=== PATIENT | female | born 1965 | race Caucasian/White ===

== ENCOUNTER 2018-05-24 09:02 | Emergency (ER) | payer OTHER ==
[~2018-05-24] VITALS: Ht 162.6 cm; Wt 56.7 kg
[2018-05-24 09:04] VITALS: BP 118/79
[2018-05-24] MEDS ORDERED: ALBU0.0912 IH (09:21)
[2018-05-24] MEDS ORDERED: MIRT30TA PO (09:21)
[2018-05-24] MEDS ORDERED: BUPR1FIL2 SL (09:21)
[2018-05-24] MEDS ORDERED: TOPI50TA PO (09:21)
[2018-05-24] MEDS ORDERED: OMEP20TC12 PO (09:21)
[2018-05-24] MEDS ORDERED: QUET50TA PO (09:21)
[2018-05-24] MEDS ORDERED: VENL150C1 PO (09:21)
[2018-05-24] MEDS ORDERED: GABA100C PO (09:21)
[2018-05-24 09:32] LABS: BASOPHILS % (AUTO) 0.6 % (0.0-2.0); EOSINOPHILS % (AUTO) 0.7 % (0.0-4.0); HEMATOCRIT 49.9 % (36-48); HEMOGLOBIN 16.6 g/dL (12.0-16.0); LYMPHOCYTES # (AUTO) 1.9 K/uL (2.5-16.5); LYMPHOCYTES % (AUTO) 41.1 % (20.5-51.1); MEAN CORPUSCULAR HEMOGLOBIN 33 pg (27-31); MEAN CORPUSCULAR HGB CONC 33 g/dL (33-37); MEAN CORPUSCULAR VOLUME 98.3 fL (80-94); MONOCYTES # (AUTO) 0.3 K/uL (0.8-1.0); MONOCYTES % (AUTO) 5.7 % (1.7-9.3); NEUTROPHILS # (AUTO) 2.3 K/uL (1.8-7.7); NEUTROPHILS % (AUTO) 51.9 % (42.2-75.2); PLATELET COUNT (AUTO) 266 K/uL (140-450); RED BLOOD CELL COUNT(AUTO) 5.08 MIL/uL (4.20-5.40); RED CELL DISTRIBUTION WIDTH 14.2 % (11.6-13.7); WHITE BLOOD COUNT (AUTO) 4.5 K/uL (4.8-10.8)
[2018-05-24 09:47] LABS: ANION GAP 15.4 (8-16); CARBON DIOXIDE 27.1 mmol/L (21-32); CREATININE 0.6 mg/dL (0.6-1.3); POTASSIUM 3.5 mmol/L (3.5-5.1); PROTHROMBIN TIME 9.6 secs (10.8-13.4)
[2018-05-24 09:53] LABS: SALICYLATE 3.3 mg/dL (2.8-20.0)
[2018-05-24 09:59] LABS: ACETAMINOPHEN < 0.5 ug/ml (10-30)
[2018-05-24] MEDS: NACL 0.9% 1,000 ML IV ONE (10:21)
[2018-05-24 11:31] LABS: APPEARANCE,URINE HAZY (CLEAR); BILIRUBIN,URINE NEGATIVE (NEGATIVE); BLOOD, URINE 1+ (NEGATIVE); COLOR,URINE YELLOW (YELLOW); LEUKOCYTE ESTERASE ,URINE NEGATIVE (NEGATIVE); NITRITE, URINE NEGATIVE (NEGATIVE); PH,URINE 5.5 (5.0-9.0); UGLUCOSE NEGATIVE (NEGATIVE)
[2018-05-24 11:52] LABS: RBC,URINE 0-5 (RARE) /HPF (0-5); WBC,URINE 0-5 (RARE) /HPF (0-5)
[2018-05-24 11:55] LABS: BARBITURATE, URINE NEG. ng/ml (NEG <=200); BENZODIAZEPINE, URINE NEG. ng/mL (NEG <=200); CANNABINOID, URINE NEG. ng/mL (NEG <=50); COCAINE, URINE NEG. ng/mL (NEG <=300); OPIATE, URINE NEG. ng/mL (NEG <=2000); PHENCYCLIDINE SCREEN,URINE NEG. ng/mL (NEG <=25)
[2018-05-24] MEDS: KETOROLAC 15 MG/ML VIAL IVP ONE (13:41)
[2018-05-24] MEDS: LORazepam 1 MG TAB PO ONE ×2 (17:12→17:47)
[2018-05-24 23:33] VITALS: BP 100/67
== END 2018-05-24 23:32 | disposition short-term general hospital (02) ==
LOC: MED 09:02
DX: R45.851 Suicidal ideations (principal); F10.10 Alcohol abuse, uncomplicated; Z79.899 Other long term (current) drug therapy
CPT/HCPCS: 36415; 74176; 80048; 80305; 81001; 81025; 85025; 85610; 96374; 99285; G0480; G0482; J1885; J7030

== ENCOUNTER 2023-04-25 19:57 | Emergency (ER) | payer OTHER ==
[~2023-04-25] VITALS: Ht 162.6 cm; Wt 54.4 kg
[~2023-04-25 19:57] MED LIST: ALBU0.0912 IH; BUPR1FIL2 SL; GABA100C PO; MIRT-92 PO; OMEP-278 PO; QUET50TA PO; TOPI50TA PO; VENL150C4 PO
[2023-04-25 19:58] VITALS: BP 91/71; PULSE 117; RESP 16; TEMP 97.8; O2SAT 100
[2023-04-25 20:42] LABS: BASOPHILS # (AUTO) 0.1 K/uL (0.00-0.22); BASOPHILS % (AUTO) 0.7 % (0.0-2.0); EOSINOPHILS # (AUTO) 0.1 K/uL (0-0.4); EOSINOPHILS % (AUTO) 1.6 % (0.0-4.0); HEMATOCRIT 40.2 % (36-48); HEMOGLOBIN 13.5 g/dL (12.0-16.0); LYMPHOCYTES # (AUTO) 3.6 K/uL (2.5-16.5); LYMPHOCYTES % (AUTO) 42.2 % (20.5-51.1); MEAN CORPUSCULAR HEMOGLOBIN 29 pg (27-31); MEAN CORPUSCULAR HGB CONC 34 g/dL (33-37); MEAN CORPUSCULAR VOLUME 86.2 fL (80-94); MONOCYTES # (AUTO) 0.7 K/uL (0.8-1.0); MONOCYTES % (AUTO) 7.8 % (1.7-9.3); NEUTROPHILS % (AUTO) 47.7 % (42.2-75.2); PLATELET COUNT (AUTO) 457 K/uL (140-450); RED BLOOD CELL COUNT(AUTO) 4.66 MIL/uL (4.20-5.40); RED CELL DISTRIBUTION WIDTH 14.6 % (11.6-13.7); WHITE BLOOD COUNT (AUTO) 8.4 K/uL (4.8-10.8)
[2023-04-25 20:53] LABS: SALICYLATE 5.6 mg/dL (2.8-20.0)
[2023-04-25 20:59] LABS: ANION GAP 12.1 (8-16); CALCIUM 8.6 mg/dL (8.5-10.1); CARBON DIOXIDE 27.7 mmol/L (21-32); CREATININE 0.7 mg/dL (0.6-1.3); POTASSIUM 3.8 mmol/L (3.5-5.1)
== END 2023-04-25 21:17 | disposition home or self-care (01) ==
LOC: MED 20:50
DX: R46.1 Bizarre personal appearance (principal); Z20.822 Contact with and (suspected) exposure to COVID-19; Z79.899 Other long term (current) drug therapy
CPT/HCPCS: 80048; 85025; 87426; 87635; 99285; G0480; G0482